=== PATIENT | female | born 1985 | race Two or more races ===

== ENCOUNTER 2017-06-08 20:04 | Emergency (ER) | payer MEDICAID ==
[~2017-06-08] VITALS: Ht 170.2 cm; Wt 104.3 kg
[2017-06-08 20:20] VITALS: BP 135/81
[2017-06-08 20:50] LABS: Urine RBC None Seen /hpf (0 - 4)
[2017-06-08 21:02] LABS: Urine Bilirubin Negative (Negative); Urine Blood Negative /uL (Negative); Urine Color Yellow (Yellow); Urine Glucose Normal (Normal); Urine Ketone Negative (Negative); Urine Mucus FEW (None Seen); Urine Nitrite Negative (Negative); Urine Squamous Epithelial Cell FEW /hpf (<5); Urine Urobilinogen Normal (Negative); Urine pH 6.5 (5.0-8.0)
[2017-06-09] MEDS ORDERED: BACLOFEN 10 MG TAB PO ONE (02:30)
[2017-06-09] MEDS ORDERED: ONDANSETRON ODT 4 MG TAB PO ONE (02:30)
== END 2017-06-09 02:28 | disposition home or self-care (01) ==
LOC: ER 20:13
DX: S30.1XXA Contusion of abdominal wall, initial encounter (principal); R07.89 Other chest pain; R51 Headache; V43.52XA Car driver injured in collision with other type car in traffic accident, initial encounter; Y93.89 Activity, other specified; Y92.89 Other specified places as the place of occurrence of the external cause; Y99.8 Other external cause status
CPT/HCPCS: 70450; 71010; 74176; 81001; 81025; 99285; J7030; Q0162

== ENCOUNTER 2017-07-29 18:43 | Emergency (ER) | payer MEDICAID ==
[~2017-07-29] VITALS: Ht 170.2 cm; Wt 104.3 kg
[2017-07-29 19:12] LABS: Basophils # (auto) 0 uL; Basophils % (auto) 0.4 % (0.0-2.0); Eosinophils # (auto) 0.1 uL; Eosinophils % (auto) 0.6 % (0.0-7.0); Hematocrit 40.1 % (36.0-46.0); Hemoglobin 13.9 g/dL (12.2-16.2); Lymphocytes # (auto) 1.8 uL; Lymphocytes % (auto) 17.4 % (10.0-50.0); Mean Corpuscular Hemoglobin 31.9 pg (28.0-32.0); Mean Corpuscular Hgb Conc. 34.6 g/dL (32.0-36.0); Mean Corpuscular Volume 92.1 fL (80.0-100.0); Mean Platelet Volume 7.8 fL (6.9-10.8); Monocytes # (auto) 0.8 uL; Monocytes % (auto) 7.4 % (0.0-12.0); Neutrophils # (auto) 7.7 uL; Neutrophils % (auto) 74.2 % (37.0-80.0); Platelet Count (auto) 249 10^3/uL (140-450); Red Cell Distribution Width 13.6 % (11.8-14.3); White Blood Cell 10.4 10^3/uL (4.4-10.8)
[2017-07-29 19:28] LABS: Albumin 3.8 g/dL (3.4-5.0); BUN/Creatinine Ratio 11.5; Bilirubin, Total 0.2 mg/dL (0.2-1.0); Potassium 3.4 mmol/L (3.5-5.1); Total Protein 7.7 g/dL (6.4-8.2)
[2017-07-29] MEDS ORDERED: SODIUM CHLORIDE 0.9% 1,000 ML IVB ONE (20:26)
[2017-07-29] MEDS ORDERED: HYDROmorphone HCL 2 MG/ML VL IV ONE (20:30)
[2017-07-29] MEDS ORDERED: ONDANSETRON HCL 4 MG/2 ML VIAL IV ONE (20:30)
[2017-07-29 20:49] LABS: INR 0.95 (0.9-1.15); Partial Thromboplastin Time 26.9 sec (22.64-33.71); Prothrombin Time 10.3 sec (9.37-12.3)
[2017-07-29 23:14] LABS: Urine RBC None Seen /hpf (0 - 4)
[2017-07-29 23:20] LABS: Urine Bilirubin Negative (Negative); Urine Blood Negative /uL (Negative); Urine Color Yellow (Yellow); Urine Glucose Normal (Normal); Urine Ketone Negative (Negative); Urine Mucus FEW (None Seen); Urine Nitrite Negative (Negative); Urine Squamous Epithelial Cell FEW /hpf (<5); Urine Urobilinogen Normal (Negative)
[2017-07-30 05:50] VITALS: BP 107/50
== END 2017-07-30 06:26 | disposition home or self-care (01) ==
LOC: ER 18:43
DX: O46.91 Antepartum hemorrhage, unspecified, first trimester (principal); Z3A.01 Less than 8 weeks gestation of pregnancy
CPT/HCPCS: 36415; 76801; 76817; 80053; 81001; 84702; 85025; 85610; 85730; 96361; 96374; 96375; 99285; J1170; J2405